=== PATIENT | female | born 1980 | race Caucasian/White ===

== ENCOUNTER 2020-07-09 14:12 | Emergency (ER) | payer OTHER, SELFPAY ==
[2020-07-09 14:14] VITALS: BP 124/91; PULSE 79; RESP 15; TEMP 36.8; O2SAT 98; BMI 36.4
--- NOTE | 2020-07-09 14:26 | RAD_ITS ---
STUDY: X-RAY - LEFT KNEE REASON FOR EXAM: Female, 40 years old. FELT A POP IN KNEE LAST NIGHT -- UNABLE TO BEAR WEIGHT OR BEND KNEE TECHNIQUE: 3 view(s) of the knee. COMPARISON: None. FINDINGS: Normal visualized distal femur. Normal visualized proximal tibia and fibula. Normal proximal tibiofibular articulation. Normal medial femorotibial compartment. Normal lateral femorotibial compartment. Normal patellofemoral articulation. The soft tissue structures are unremarkable. RAD/Knee 1 or 2 Views IMPRESSION: Normal x-ray examination of the knee. Electronically Signed: Filiberto Robles DO at 15:51 EDT Tel [phone], Service support ,
--- NOTE | 2020-07-09 14:26 | ED.VIS.LOWEX ---
History of Present Illness Chief Complaint: Lower Extremity Injury Informant: Patient Occurred: Yesterday Mechanism/Context: Fall Onset: Yesterday Context: Sudden Onset Timing: Continuous Quality of Pain: Sharp Location: left knee Current Severity: Severe Maximum Severity: Severe Worsened by: Movement palpation and walking Relieved by: Nothing Associated Symptoms: Negative for: Parasthesia, Weakness, Loss of Funtion Narrative: 40-year-old female presents emergency department with left knee pain. The patient states thatLast evening she jumped up to grab something off a shelf at home and came down on her left knee. She has had increased pain and swelling since she woke up this morning. She is ambulatory. No numbness tingling or weakness. No history of injury or surgery to this extremity previously. She denies any other injuries at this time. Tetanus Immunization: Unknown Prior similar symptoms: No Recent Illness/Hospitalization: No Past Medical History - Allergies and Home Meds Allergies/Adverse Reactions: Allergies carbamazepine [From Tegretol] Allergy (Verified 07/09/20 14:14) Hives Iodinated Contrast Media [CONTRASTS] Allergy (Verified 07/09/20 14:14) Hives Latex, Natural Rubber Allergy (Verified 07/09/20 14:14) Rash Penicillins [PCN] Allergy (Verified 07/09/20 14:14) Hives Sulfa (Sulfonamide Antibiotics) Allergy (Verified 07/09/20 14:14) Rash Primary Care Physician: King Yo MD [STAFF PHYSICIAN] - Prior records reviewed: Yes Past Medical History: None Surgical History: no surgical history Lives: With Family Smoking Status: Never smoker Alcohol: Occasional Drugs: None Review of Systems All systems negative except as indicated General: Denies: Chills, Fever, Sweats Eyes: Denies: Visual changes - bilaterally, Diplopia ENT: Denies: Rhinorrhea, Sore throat Cardiovascular: Denies: Chest pain, Palpitations Respiratory: Denies: Dyspnea, Cough, Dyspnea on exertion Gastrointestinal: Denies: Abdominal pain, Nausea, Vomiting, Diarrhea, Melena, Hematochezia Genitourinary: Denies: Dysuria, Hematuria, Frequency Musculoskeletal: Reports: Swelling, Extremity Pain. Denies: Back pain Skin: Denies: Rash, Wounds Neurological: Denies: Headache, Weakness, Numbness Physical Exam Vital Signs/Narrative: Vital Signs Temp Pulse Resp BP Pulse Ox 07/09/20 14:14 98.3 F 79 15 124/91 H 98 Inital Vital Signs reviewed: Yes - Extremity Exam Left Knee: Edema, Limited ROM, - - Patient has swelling and a bruise on the anterior left knee over the patella. Skin is intact. No deformities noted. She has full flexion and extension actively but it is painful. She is neurovascularly intact distally. She has limited ligamental testing due to pain and swelling and intolerance. Negative for: Abrasion, Contusion, Deformity, Hematoma General: Well nourished, Well developed Head: Normocephalic, Atraumatic Eyes: Perrl, EOMI ENT: No Trauma, Moist Mucous Membranes Neck: Nontender, Full ROM Cardiovascular: Regular rate, Regular rhythm, No murmurs Respiratory: No distress, CTA bilaterally, Chest nontender Abdomen: Soft, Nontender, Nondistended, Normal bowel sounds Back: Nontender Skin: Normal color, No rash Neurological: Alert, Oriented x3, Cranial nerves II-XII grossly intact, Normal Strength, Normal Sensation Psychological: Normal affect Diagnostic/Tx/Re-eval Impressions Knee X-Ray 07/09/20 14:26 IMPRESSION: Normal x-ray examination of the knee. Electronically Signed: Filiberto Robles DO at 15:51 EDT Tel [phone], Service support , 07/09/20 14:26 Knee 1 or 2 Views [RAD] Stat - Medical Decision Making Patient declined analgesia in the emergency department. X-ray left knee is unremarkable. Patient was reassured. Will provide an Giovanny wrap and crutches. She will rest ice and elevate. Prescribed Naprosyn. She will follow with orthopedics. She was agreeable with plan return precautions given and discharged home ED Disposition - Plan for ED Patient: Disposition: Home or Assisted Living Diagnosis: Left knee sprain Instructions: ED Sprain Knee Prescriptions: Naproxen [Naprosyn] 500 mg PO BID PRN #20 tab Transmission Status: Pending to [id number] Hydrocodone Bitart/Apap 5-325 [[place] 5MG-325MG] 1 tablet PO Q6H PRN PRN 3 Days #10 tablet PRN Reason: Pain Transmission Status: Received by [id number] Referrals: King Yo MD [STAFF PHYSICIAN] - Elias Page DO [STAFF PHYSICIAN] -
[2020-07-09 16:41] VITALS: BP 120/89; PULSE 90; RESP 14; O2SAT 99
== END 2020-07-09 16:42 | disposition home or self-care (01) ==
PROVIDERS: Emergency Provider Physician Assistant Medical
DX: S83.92XA Sprain of unspecified site of left knee, initial encounter (principal); X58.XXXA Exposure to other specified factors, initial encounter; Y93.9 Activity, unspecified; Y92.009 Unspecified place in unspecified non-institutional (private) residence as the place of occurrence of the external cause; Y99.9 Unspecified external cause status
CPT/HCPCS: 73560; 99283